=== PATIENT | female | born 1935 | race Caucasian/White ===

== ENCOUNTER 2021-02-11 10:54 | Emergency (ER) | payer MEDICARE, OTHER ==
[~2021-02-11 10:54] MED LIST: Sodium Chloride 0.9% 10 ML Syringe FLUSH PRN
[2021-02-11] MEDS ORDERED: Sodium Bicarbonate 8.4% 50 MEQ/50 ML Syringe ONE (11:05)
[2021-02-11] MEDS ORDERED: EPINEPHrine 1:10,000 1 MG/10 ML Syringe ONE (11:05)
[2021-02-11] MEDS ORDERED: Atropine 0.1 MG/ML 10 ML Syringe ONE (11:05)
[2021-02-11] MEDS ORDERED: Iopamidol 755 Mg/ML 100 ML Bottle IVPUSH ONE (11:19)
[2021-02-11 11:28] LABS: PTT,PARTIAL THROMBOPLSTIN TIME 22.7 SEC (25.6-32.8)
[2021-02-11] MEDS ORDERED: Norepinephrine 4 MG in Dextrose 5% in Water 246 ML IV SCH ×2 (11:30)
[2021-02-11] MEDS ORDERED: Sodium Chloride 0.9% 1,000 ML IV SCH (11:30)
[2021-02-11] MEDS ORDERED: cefTRIAXone 2 GM Vial IVPUSH ONE (11:32)
[2021-02-11] MEDS ORDERED: Furosemide 40 MG/4 ML VIAL IV ONE (11:43)
--- NOTE | 2021-02-11 11:55 | CT ---
[id number] CT/CT Head Stroke Protocol EXAM: NONCONTRAST HEAD CT INDICATION: STROKE. COMPARISON: None. DISCUSSION: Mild to moderate generalized atrophy. Moderate multifocal white matter hypoattenuation is nonspecific, but generally ascribed to chronic small vessel ischemia. No mass effect or midline shift. No acute hemorrhage or extra-axial fluid collection. No acute territorial infarct is identified. Services [id number] bilateral ethmoid sinus mucosal thickening. Mild layering fluid mucus in the sphenoid sinuses. IMPRESSION: 1. No acute findings. Joshua Caceres MD 02/11/21 9911 Thank you for allowing us to participate in the care of your patient.
--- NOTE | 2021-02-11 12:17 | CT ---
[id number] CT/CTA Head Exam: CTA Head Clinical Data: NEUROLOGIC DEFICIT COMPARISON: CORRELATION IS MADE WITH THE EARLIER PLAIN CT BRAIN FINDINGS: The majority of the basilar artery is not opacified The endotracheal tube is in good position Extensive bilateral pulmonary parenchymal infiltrates are seen. There appears to be a high-grade distal left M1 middle cerebral stenosis The V3 segment of the distal right vertebral artery is not opacified The vertebral basilar system is of decreased caliber Posterior communicating arteries are present Report called at time of dictation IMPRESSION: BASILAR ARTERY THROMBOSIS Carlos Dill MD 02/11/21 [id number] Thank you for allowing us to participate in the care of your patient.
--- NOTE | 2021-02-11 12:19 | CR ---
[id number] RAD/RAD Chest PA or AP 1V EXAM: SINGLE VIEW CHEST. INDICATION: NEUROLOGIC DEFICIT COMPARISON: CORRELATION IS MADE WITH 2017 FINDINGS: The endotracheal tube is in good position There are extensive bilateral infiltrates consistent with edema The cardiac silhouette is enlarged The thoracic aorta is tortuous There is a hiatal hernia IMPRESSION: ET TUBE IN GOOD POSITION CONGESTIVE HEART FAILURE Carlos Dill MD 02/11/21 1937 Thank you for allowing us to participate in the care of your patient.
--- NOTE | 2021-02-11 12:21 | EDM.PDOC ---
ED HPI GENERAL MEDICAL PROBLEM - General Stated Complaint: STROKE CODE Time Seen by Provider: 02/11/21 10:54 Source of Information: Reports: EMS, EMS Notes Reviewed History Limitations: Reports: Altered Mental Status - History of Present Illness INITIAL COMMENTS - FREE TEXT/NARRATIVE: Patient was no the phone with her son Tono, that lives in [place] at about 10:15 am. She was heard to be asking fo rhelp but he could not understand her due to slurred speech. She became unresponsive. Son called dispatch here in town and police went to the house. Doors were locked, they broke down the door. EMS found her to be unresponsive but breathing and bradycardic. sats were 94% but a Non rebreather was placed on the patient. [facility] She had agonal respirations at arrival, adn pulse was bradycardic. Unknown last well, no blood thinners per history and unknown code level status. Onset: Unknown/Unsure - Related Data Allergies Allergy/AdvReac Type Severity Reaction Status Date / Time No Known Allergies Allergy Verified 03/10/18 22:45 Home Meds: Home Meds Levothyroxine [Synthroid] 112 mcg PO DAILY 03/17/16 [History] Lisinopril 20 mg PO DAILY 03/17/16 [History] amLODIPine Besylate [Amlodipine Besylate] 1 tab PO BID 03/10/18 [History] Past Medical History - Past Health History Medical/Surgical History: Denies Medical/Surgical History Cardiovascular History: Reports: High Cholesterol, Hypertension Endocrine/Metabolic History: Reports: Hypothyroidism ED ROS GENERAL - Review of Systems Review Of Systems: Unable To Obtain Reason Not Obtained: patient unresponsive ED EXAM, NEURO - Physical Exam Exam: See Below Exam Limited By: Altered Mental Status General Appearance: Severe Distress (agonal breathing, ) Nose: Normal Inspection, Normal Mucosa Throat/Mouth: Normal Inspection, Normal Lips, Normal Teeth Head Exam: Atraumatic Respiratory/Chest: Other (agonal then not breathing) Cardiovascular: Other (bradycardia, then asystole, regained NSR, to pooja to asystole) #1 Interpretation EKG Date: 02/11/21 Time: 10:50 Rhythm: NSR Rate (Beats/Min): 42 ST-T: Normal EKG Interpretation Comments: no stemi, done via EMS #2 Interpretation EKG Date: 02/11/21 Time: 11:41 Rhythm: Other (agonal escape rhythm, no p seen) P-Wave: Absent Course - Orders/Labs/Meds Orders: Active Orders 24 hr Category Date Time Status Assess Neurological Status [] CONTINUOUS Care 02/11/21 10:43 Active Blood Glucose Check, Bedside [] STAT Care 02/11/21 10:43 Active Cardiac Monitoring [] CONTINUOUS Care 02/11/21 10:43 Active Communication Order [] STAT Care 02/11/21 10:43 Active Gastrointestinal Tube Mgmt [] ASDIRECTED Care 02/11/21 11:42 Active Height and Weight [] UPON Care 02/11/21 10:43 Active NIH Stroke Scale [] Q15M Care 02/11/21 10:43 Active NIH Stroke Scale [] STAT Care 02/11/21 10:43 Active Oxygen Therapy, ED [] ASDIRECTED Care 02/11/21 10:43 Active Vital Signs [] Q15M Care 02/11/21 10:43 Active Abdomen 1V Upright [CR] Stat Exams 02/11/21 11:42 Stop Req Ang Neck [CT] Stat Exams 02/11/21 10:46 Ordered Chest 1V Frontal [CR] Stat Exams 02/11/21 11:42 Stop Req Norepinephrine [Levophed] 4 mg Med 02/11/21 11:30 Active Dextrose 5% in Water 246 ml IV TITRATE Sodium Chloride 0.9% [Normal Saline] 1,000 ml Med 02/11/21 11:30 Active IV ASDIRECTED Sodium Chloride 0.9% [Saline Flush] Med 02/11/21 10:43 Active 10 ml FLUSH ASDIRECTED PRN Nasogastric Orogastric Tube Insertion [OM.PC] Routine Oth 02/11/21 11:42 Ordered Peripheral IV Insertion Adult [OM.PC] Stat Oth 02/11/21 10:43 Ordered Peripheral IV Insertion Adult [OM.PC] Stat Oth 02/11/21 10:43 Ordered Medication Orders Sodium Chloride (Normal Saline) 1,000 mls @ 1,000 mls/hr IV ASDIRECTED LITZY Norepinephrine Bitartrate 4 mg (/ Dextrose/Water) 250 mls @ 7.5 mls/hr IV TITRATE LITZY; Protocol Sodium Chloride (Sodium Chloride 0.9% 10 Ml Syringe) 10 ml FLUSH ASDIRECTED PRN PRN Reason: Keep Vein Open Labs: Laboratory Tests 02/11/21 02/11/21 02/11/21 Range/Units 11:02 11:02 11:02 WBC 17.0 H (4.0-10.0) x10^3/uL RBC 5.34 (4.00-5.50) x10^6/uL Hgb 15.5 (12.0-16.0) g/dL Hct 47.3 H (33.0-47.0) % MCV 88.6 D (78.0-93.0) fL MCH 29.0 (26.0-32.0) pg MCHC 32.8 (32.0-36.0) g/dL RDW Coeff of Paresh 14.9 (10.0-15.0) % Plt Count 244 (130-400) x10^3/uL Neut % (Auto) 45.1 L (50.0-80.0) % Lymph % (Auto) 41.7 (25.0-50.0) % Marin % (Auto) 8.5 (2.0-11.0) % Eos % (Auto) 4.3 H (0.0-4.0) % Baso % (Auto) 0.4 (0.2-1.2) % PT 9.8 L (9.9-12.5) SEC INR 0.9 L (2.0-3.5) APTT 22.7 L (25.6-32.8) SEC Sodium TNP Potassium TNP Chloride TNP Carbon Dioxide 27 (21-32) mmol/L Anion Gap TNP BUN 17 (7-18) mg/dL Creatinine 0.9 (0.55-1.02) mg/dL Est Cr Clr Drug Dosing TNP Estimated GFR (MDRD) 60 Glucose 183 H (70-99) mg/dL Lactic Acid (0.4-2.0) mmol/L Calcium 9.2 (8.5-10.1) mg/dL Corrected Calcium TNP Total Bilirubin 0.4 (0.2-1.0) mg/dL AST 24 (15-37) U/L ALT 22 (14-59) U/L Alkaline Phosphatase 89 (46-116) U/L Troponin I High Sens 14 (<=51) ng/L Total Protein 9.3 H (6.4-8.2) g/dL Albumin TNP Globulin TNP Albumin/Globulin Ratio TNP TSH, Ultra Sensitive 0.009 L (0.358-3.74) uIU/mL SARS CoV-2 RNA Rapid MITCHEL (NEGATIVE) 02/11/21 02/11/21 Range/Units 11:02 11:27 WBC (4.0-10.0) x10^3/uL RBC (4.00-5.50) x10^6/uL Hgb (12.0-16.0) g/dL Hct (33.0-47.0) % MCV (78.0-93.0) fL MCH (26.0-32.0) pg MCHC (32.0-36.0) g/dL RDW Coeff of Paresh (10.0-15.0) % Plt Count (130-400) x10^3/uL Neut % (Auto) (50.0-80.0) % Lymph % (Auto) (25.0-50.0) % Marin % (Auto) (2.0-11.0) % Eos % (Auto) (0.0-4.0) % Baso % (Auto) (0.2-1.2) % PT (9.9-12.5) SEC INR (2.0-3.5) APTT (25.6-32.8) SEC Sodium Potassium Chloride Carbon Dioxide (21-32) mmol/L Anion Gap BUN (7-18) mg/dL Creatinine (0.55-1.02) mg/dL Est Cr Clr Drug Dosing Estimated GFR (MDRD) Glucose (70-99) mg/dL Lactic Acid 2.9 H* (0.4-2.0) mmol/L Calcium (8.5-10.1) mg/dL Corrected Calcium Total Bilirubin (0.2-1.0) mg/dL AST (15-37) U/L ALT (14-59) U/L Alkaline Phosphatase (46-116) U/L Troponin I High Sens (<=51) ng/L Total Protein (6.4-8.2) g/dL Albumin Globulin Albumin/Globulin Ratio TSH, Ultra Sensitive (0.358-3.74) uIU/mL SARS CoV-2 RNA Rapid MITCHEL Negative (NEGATIVE) Meds: Medications Generic Name Dose Route Start Last Admin Trade Name Freq PRN Reason Stop Dose Admin Sodium Chloride 1,000 mls @ 1,000 mls/hr 02/11/21 11:30 Normal Saline IV ASDIRECTED LITZY Norepinephrine Bitartrate 4 mg 250 mls @ 7.5 mls/hr 02/11/21 11:30 / Dextrose/Water IV TITRATE LITZY Protocol 2 MCG/MIN Sodium Chloride 10 ml 02/11/21 10:43 Sodium Chloride 0.9% 10 Ml Syringe FLUSH ASDIRECTED PRN Keep Vein Open Discontinued Medications Generic Name Dose Route Start Last Admin Trade Name Freq PRN Reason Stop Dose Admin Ceftriaxone Sodium 2 gm 02/11/21 11:32 Ceftriaxone 2 Gm Vial IVPUSH 02/11/21 11:33 STAT ONE Furosemide 40 mg 02/11/21 11:43 Furosemide 40 Mg/4 Ml Vial IV 02/11/21 11:44 ONETIME ONE Iopamidol 100 ml 02/11/21 11:19 02/11/21 11:50 Iopamidol 755 Mg/Ml 100 Ml Bottle IVPUSH 02/11/21 11:20 100 ml ONETIME ONE Administration - Radiology Interpretation Free Text/Narrative:: chest x-ray with ET tube in good position, extensive bilateral infiltrates CT CTA head, basilar artery thrombosis CT non contrast head, no acute CTA neck, near complete occulsion of the porximal cervical left internal carotid artery all reports read by radiology - Re-Assessments/Exams Free Text/Narrative Re-Assessment/Exam: 02/11/21 Stroke code called in the field at 10:40. patient arrived at 10:54, agonal breaths, lows sats, bradycardia. code blue called at 10:59 compression began, Iv already in place. Sayra was applied and bagging continued, not sure of advanced directives, gave a minute or two to find. airway was suction and intubation was completed at 11:04 witha #8 ET tube. balloon inflated and symmetric breath sounds and good capnography. CO2 end tidal 43, epi and atropine was given at 11:06. CRP for a minute sayra pasused, pulse noted. NSR, no spontaneous respirations. continued to bag. sodium bicarb given, removed sayra and to CT for head and head and neck angios. Patient bagged during CT, non contrast head negative contemporaneously by myself , angios done. returned to the ED. Blood glucose in the field was >120. blood pressure was 177/90 pulse of 107 and o2 sats 100 chest x-ray revealed tube in good placement. large extensive infiltrates bilaterally. vent started. end tidal co2 74. 11:29 fluids x 2 liters are infusing, attempt at OG, not successful. blood pressure is 64/44, lung sounds are equal. sats are 80%. 11:36 blood pressure continue to drop. norepi drip started at 4mcg/min. continues to pooja down. provider was on phone with eulogio Power at this time. advance directive was found and her wishes were DNI/DNR and no organ donation. Discussed with son if he would like us to start CPR and he advised against it. 11:48 no pulse, no cpr started per family time of call at 11:52. call to son and carpenter mate. Not a carpenter mate case. 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 Clinical Impression: (Ruled Out): Embolic stroke involving basilar artery - Discharge Information Referrals: Aimee Ibarra MD [Primary Care Provider] - - My Orders Last 24 Hours: My Active Orders 02/11/21 10:43 Assess Neurological Status [RC] CONTINUOUS Blood Glucose Check, Bedside [RC] STAT Cardiac Monitoring [RC] CONTINUOUS Communication Order [RC] STAT Height and Weight [RC] UPON NIH Stroke Scale [RC] Q15M NIH Stroke Scale [RC] STAT Oxygen Therapy, ED [RC] ASDIRECTED Vital Signs [RC] Q15M Sodium Chloride 0.9% [Saline Flush] 10 ml FLUSH ASDIRECTED PRN Peripheral IV Insertion Adult [OM.PC] Stat Peripheral IV Insertion Adult [OM.PC] Stat 02/11/21 10:46 Ang Neck [CT] Stat 02/11/21 11:30 Norepinephrine [Levophed] 4 mg Dextrose 5% in Water 246 ml IV TITRATE Sodium Chloride 0.9% [Normal Saline] 1,000 ml IV ASDIRECTED 02/11/21 11:42 Gastrointestinal Tube Mgmt [RC] ASDIRECTED Abdomen 1V Upright [CR] Stat Chest 1V Frontal [CR] Stat Nasogastric Orogastric Tube Insertion [OM.PC] Routine - Assessment/Plan Last 24 Hours: My Active Orders 02/11/21 10:43 Assess Neurological Status [RC] CONTINUOUS Blood Glucose Check, Bedside [RC] STAT Cardiac Monitoring [RC] CONTINUOUS Communication Order [RC] STAT Height and Weight [RC] UPON NIH Stroke Scale [RC] Q15M NIH Stroke Scale [RC] STAT Oxygen Therapy, ED [RC] ASDIRECTED Vital Signs [RC] Q15M Sodium Chloride 0.9% [Saline Flush] 10 ml FLUSH ASDIRECTED PRN Peripheral IV Insertion Adult [OM.PC] Stat Peripheral IV Insertion Adult [OM.PC] Stat 02/11/21 10:46 Ang Neck [CT] Stat 02/11/21 11:30 Norepinephrine [Levophed] 4 mg Dextrose 5% in Water 246 ml IV TITRATE Sodium Chloride 0.9% [Normal Saline] 1,000 ml IV ASDIRECTED 02/11/21 11:42 Gastrointestinal Tube Mgmt [RC] ASDIRECTED Abdomen 1V Upright [CR] Stat Chest 1V Frontal [CR] Stat Nasogastric Orogastric Tube Insertion [OM.PC] Routine
== END 2021-02-11 11:52 | disposition expired ==
LOC: VM.ED 10:54
DX: I63.02 Cerebral infarction due to thrombosis of basilar artery (principal); E78.00 Pure hypercholesterolemia, unspecified; I10 Essential (primary) hypertension; E03.9 Hypothyroidism, unspecified; Z79.899 Other long term (current) drug therapy; Z20.822 Contact with and (suspected) exposure to COVID-19
CPT/HCPCS: 31500; 36415; 70450; 70496; 71045; 80053; 83605; 84443; 84484; 85025; 85610; 85730; 92950; 93010; 99284; 99285-25; J0171; J0461; J7030; J7060; Q9967; U0002